=== PATIENT | female | born 1955 | race Caucasian/White ===

== ENCOUNTER 2018-01-25 07:20 | Emergency (ER) | payer MEDICARE, BC ==
[~2018-01-25] VITALS: Ht 5451.6 cm; Wt 77.3 kg
[~2018-01-25 07:20] MED LIST: AMLO10TA PO; BUPR150T8 PO; ERGO500014 PO; INSU100V13 SQ; LANTUS SQ; LEVO125T PO; LEVO1CAP PO; PANT-47 PO; QUET50TA15 PO; RAMI5CAP PO; TRAZ-146 PO; [UNRECOGNIZED DRUG - CODE] PO
[2018-01-25 07:47] LABS: BASOPHILS # (AUTO) 0.1 X10'3 (0-0.2); BASOPHILS % (AUTO) 0.5 % (0-1); EOSINOPHILS # (AUTO) 0.3 X10'3 (0-0.9); EOSINOPHILS % (AUTO) 3.4 % (0-6); HEMATOCRIT 35.4 % (35.0-45.0); HEMOGLOBIN 11.6 g/dl (12.0-16.0); LYMPHOCYTES # (AUTO) 1.2 X10'3 (1.1-4.8); LYMPHOCYTES % (AUTO) 12.5 % (21-51); MEAN CORPUSCULAR HEMOGLOBIN 28.8 PG (27.0-31.0); MEAN CORPUSCULAR HGB CONC 32.9 % (33.0-36.5); MEAN CORPUSCULAR VOLUME 87.5 FL (78-98); MEAN PLATELET VOLUME 8.6 FL (7.4-10.4); MONOCYTES # (AUTO) 0.5 X10'3 (0-0.9); MONOCYTES % (AUTO) 5.2 % (2-12); NEUTROPHILS # (AUTO) 7.7 X10'3 (1.8-7.7); NEUTROPHILS % (AUTO) 78.4 % (42-75); PLATELET COUNT 249 X10'3 (140-440); RED BLOOD COUNT 4.04 X10'6 (4.20-5.60); RED CELL DISTRIBUTION WIDTH 15.7 % (11.5-14.5); WHITE BLOOD COUNT 9.8 X10'3 (4.5-11.0)
[2018-01-25 08:00] LABS: ALANINE AMINOTRANSFERASE 81 U/L (12-78); ALBUMIN 3.1 G/DL (3.4-5.0); ALBUMIN/GLOBULIN RATIO 0.8 (1.1-1.5); ALKALINE PHOSPHATASE 131 IU/L (46-116); ANION GAP 10 (8-16); ASPARTATE AMINO TRANSFERASE 168 U/L (10-37); BILIRUBIN,TOTAL 0.3 MG/DL (0.1-1.0); BLOOD UREA NITROGEN 29 MG/DL (7-18); BUN/CREATININE RATIO 25.2 (6.6-38.0); CALCIUM 8.9 MG/DL (8.5-10.1); CHLORIDE 107 MMOL/L (99-107); CREATININE 1.15 MG/DL (0.40-0.90); GLUCOSE 115 MG/DL (70-104); POTASSIUM 4.4 MMOL/L (3.5-5.1); SODIUM 141 MMOL/L (135-145); TOTAL CARBON DIOXIDE 23.8 MMOL/L (24-32); TOTAL PROTEIN 6.9 G/DL (6.4-8.2); eGFR 48 ML/MIN
[2018-01-25 08:02] LABS: URINE HCG NEGATIVE (NEG)
[2018-01-25] MEDS ORDERED: MORPHINE 2MG in 2ml NS syringe IV PRN (08:05)
[2018-01-25] MEDS ORDERED: famotidine/PF 10 mg/ml inj IV ONE (08:05)
[2018-01-25] MEDS ORDERED: pantoprazole 40 MG vial IV ONE (08:05)
[2018-01-25] MEDS ORDERED: proCHLORperazine 10 MG/2 ml inj IV ONE (08:05)
[2018-01-25] MEDS ORDERED: morphine 4 MG/ML inj SYRINge IV PRN (08:08)
[2018-01-25 08:13] LABS: CLARITY,URINE SLIGHTLY CLOUDY (Clear); COLOR,URINE YELLOW (Yellow); GLUCOSE, URINE NEGATIVE (Neg); KETONES,URINE NEGATIVE (Neg); LEUKOCYTE ESTERASE ,URINE NEGATIVE (Neg); NITRITES, URINE NEGATIVE (Neg); OCCULT BLOOD,URINE NEGATIVE (Neg); PH,URINE 5.5 (4.8-8.0); PROTEIN,URINE 30 mg/dl (Neg); UROBILINOGEN,URINE 0.2 E.U/dL (0.2-1.0)
[2018-01-25 08:14] LABS: UA COLLECTION TYPE CLN CATCH MIDSTREAM
[2018-01-25 08:22] LABS: BACTERIA,URINE FEW /HPF (Neg); RBC,URINE NONE SEEN /HPF (0-2); SQUAMOUS EPITHELIAL CELL,UR FEW /LPF (FEW); WBC,URINE 0-4 /HPF (0-4)
[2018-01-25 08:23] LABS: MUCUS STRANDS NONE SEEN /LPF (Neg)
[2018-01-25 09:00] LABS: LIPASE 378 U/L (73-393)
[2018-01-25] MEDS: diatr meglu/diatrizoate 30ml oral sol.-(3 dose) bottle PO SCH ×3 (09:39→10:26)
[2018-01-25 10:28] VITALS: BP 133/75
== END 2018-01-25 12:45 | disposition home or self-care (01) ==
LOC: ER 07:21
DX: R10.11 Right upper quadrant pain (principal); K44.9 Diaphragmatic hernia without obstruction or gangrene; K59.00 Constipation, unspecified; N28.9 Disorder of kidney and ureter, unspecified; D35.02 Benign neoplasm of left adrenal gland; D35.01 Benign neoplasm of right adrenal gland; G89.29 Other chronic pain; Z98.890 Other specified postprocedural states; Z88.0 Allergy status to penicillin; Z79.899 Other long term (current) drug therapy; Z90.710 Acquired absence of both cervix and uterus; Z98.84 Bariatric surgery status; Z90.5 Acquired absence of kidney; Z88.1 Allergy status to other antibiotic agents
CPT/HCPCS: 36415; 74176; 80053; 81001; 81025; 83690; 85025; 96374; 96375; 99285; C9113; J0780; J3490; Q9963

== ENCOUNTER 2019-01-05 11:35 | Inpatient (IN) | payer MEDICARE, BC ==
[2019-01-05] VITALS (11 sets, daily range): BP systolic 127–168; BP diastolic 56–95
[~2019-01-05] VITALS: Ht 162.6 cm; Wt 94.1 kg
[~2019-01-05 11:35] MED LIST changes: +DIVA250T34 PO; -RAMI5CAP PO; +RAMI5CAP65 PO; -TRAZ-146 PO; +TRAZ-219 PO; -[UNRECOGNIZED DRUG - CODE] PO
[2019-01-05 12:24] LABS: BASOPHILS # (AUTO) 0.1 X10'3 (0-0.2); BASOPHILS % (AUTO) 0.9 % (0-1); EOSINOPHILS # (AUTO) 0.2 X10'3 (0-0.9); EOSINOPHILS % (AUTO) 1.8 % (0-6); HEMATOCRIT 42.9 % (35.0-45.0); HEMOGLOBIN 13.7 g/dl (12.0-16.0); LYMPHOCYTES # (AUTO) 1.7 X10'3 (1.1-4.8); LYMPHOCYTES % (AUTO) 13.7 % (21-51); MEAN CORPUSCULAR HEMOGLOBIN 27.3 PG (27.0-31.0); MEAN CORPUSCULAR HGB CONC 31.8 g/dL (33.0-36.5); MEAN CORPUSCULAR VOLUME 85.7 FL (78-98); MEAN PLATELET VOLUME 8.9 FL (7.4-10.4); MONOCYTES # (AUTO) 0.6 X10'3 (0-0.9); NEUTROPHILS # (AUTO) 9.9 X10'3 (1.8-7.7); NEUTROPHILS % (AUTO) 78.6 % (42-75); PLATELET COUNT 267 X10'3 (140-440); RED BLOOD COUNT 5.01 X10'6 (4.20-5.60); RED CELL DISTRIBUTION WIDTH 15.3 % (11.5-14.5); WHITE BLOOD COUNT 12.6 X10'3 (4.5-11.0)
[2019-01-05] MEDS ORDERED: normal saline 1000ML IV soln IVB ONE (12:30)
[2019-01-05 12:32] LABS: ALANINE AMINOTRANSFERASE 18 U/L (12-78); ALBUMIN 3.4 G/DL (3.4-5.0); ALBUMIN/GLOBULIN RATIO 0.7 (1.1-1.5); ALKALINE PHOSPHATASE 115 IU/L (46-116); ANION GAP 11 (8-16); ASPARTATE AMINO TRANSFERASE 13 U/L (10-37); BILIRUBIN,TOTAL 0.6 MG/DL (0.1-1.0); BLOOD UREA NITROGEN 30 MG/DL (7-18); BUN/CREATININE RATIO 17.5 (6.6-38.0); CALCIUM 9.5 MG/DL (8.5-10.1); CHLORIDE 103 MMOL/L (99-107); CREATININE 1.71 MG/DL (0.40-0.90); GLUCOSE 194 MG/DL (70-104); INR 0.9 INR; POTASSIUM 4.6 MMOL/L (3.5-5.1); SODIUM 137 MMOL/L (135-145); TOTAL PROTEIN 8.2 G/DL (6.4-8.2); eGFR 30 ML/MIN
[2019-01-05 12:40] LABS: LIPASE 208 U/L (73-393)
[2019-01-05] MEDS ORDERED: metroNIDAZOLE-Flagyl 500mg/NS 100 ML IV ONE (13:35)
[2019-01-05] MEDS ORDERED: levoFLOXACIN-Levaquin 750MG/D5 150 ML IV ONE (13:35)
[2019-01-05] MEDS ORDERED: fentaNYL/PF 50MCG/1 ML 2ML syringe IV ONE ×2 (14:40→18:10)
[2019-01-05 14:51] LABS: CLARITY,URINE SLIGHTLY CLOUDY (Clear); GLUCOSE, URINE NEGATIVE (Neg); KETONES,URINE NEGATIVE (Neg); LEUKOCYTE ESTERASE ,URINE TRACE (Neg); NITRITES, URINE POSITIVE (Neg); OCCULT BLOOD,URINE NEGATIVE (Neg); PH,URINE 5.5 (4.8-8.0); PROTEIN,URINE 100 mg/dl (Neg); UROBILINOGEN,URINE 0.2 E.U/dL (0.2-1.0)
[2019-01-05 14:57] LABS: COLOR,URINE DARK YELLOW (Yellow); UA COLLECTION TYPE CLN CATCH MIDSTREAM
[2019-01-05] MEDS ORDERED: BUPR300T86 PO (15:00)
[2019-01-05] MEDS ORDERED: PROG200C7 PO (15:00)
[2019-01-05 15:01] LABS: BACTERIA,URINE 4+ /HPF (Neg); RBC,URINE NONE SEEN /HPF (0-2); SQUAMOUS EPITHELIAL CELL,UR MANY /LPF (FEW); WBC CLUMPS,URINE FEW /HPF (NEGATIVE)
[2019-01-05] MEDS ORDERED: [UNRECOGNIZED DRUG - OTHER] PO (15:03)
[2019-01-05] MEDS ORDERED: [UNRECOGNIZED DRUG - OTHER] PO (15:03)
[2019-01-05] MEDS ORDERED: THYROID PO (15:12)
[2019-01-05] MEDS ORDERED: [UNRECOGNIZED DRUG - OTHER] PO (15:12)
[2019-01-05] MEDS ORDERED: GLEC1TAB PO (15:21)
[2019-01-05] MEDS: normal saline 1000ml 1,000 ML IV SCH ×2 (15:38→18:43)
[2019-01-05] MEDS ORDERED: docusate sod 100mg capsule PO PRN (15:40)
[2019-01-05] MEDS ORDERED: magnesium 4gm in 100ml NS 100 ML IV PRN (15:40)
[2019-01-05] MEDS ORDERED: magnesium 2GM in 50ml NS 50 ML IV PRN (15:40)
[2019-01-05] MEDS ORDERED: magnesium Cl slow-release 64mg tablet PO PRN (15:40)
[2019-01-05] MEDS ORDERED: potassium Cl 40MEQ/NS 500ml 500 ML IV PRN ×2 (15:40)
[2019-01-05] MEDS ORDERED: acetaminophen 325mg tablet PO PRN ×2 (15:40)
[2019-01-05] MEDS ORDERED: dextrose 50%-water 50ml dispensing syringe IV PRN ×2 (15:40)
[2019-01-05] MEDS ORDERED: ondansetron/PF 4mg/2ml inj IV PRN ×2 (15:40→20:15)
[2019-01-05] MEDS ORDERED: HYDROcodone/acetaminophen 5mg/325mg tablet PO PRN ×2 (15:40→20:40)
[2019-01-05] MEDS ORDERED: glucagon, human recombinant 1mg kit SUBCUT PRN (15:40)
[2019-01-05] MEDS ORDERED: dextrose ORAL solution 15 GM/59 ML bottle PO PRN ×2 (15:40)
[2019-01-05] MEDS ORDERED: potassium Cl 20 mEq SR tablet PO PRN ×2 (15:40)
[2019-01-05] MEDS ORDERED: morphine 4 MG/ML inj SYRINge IV PRN ×3 (15:40→20:15)
[2019-01-05] MEDS ORDERED: MESSAGE TO PHARMACY PO ONE (15:40)
--- NOTE | 2019-01-05 18:30 | NUR ---
PT BLOOD GLUCOSE PER PT MONITOR - 90
[2019-01-05] MEDS ORDERED: BUPIVAcaine/PF 2.5mg/ml (0.25%) 10ml vial ONE (19:16)
[2019-01-05] MEDS ORDERED: LIDOcaine 1% 30ml preserv. free vial ONE (19:16)
[2019-01-05] MEDS ORDERED: midazolam 2 mg/2 ml injection ONE (19:37)
[2019-01-05] MEDS ORDERED: fentaNYL/PF 50MCG/1 ML 2ML syringe ONE (19:37)
[2019-01-05] MEDS ORDERED: sevoflurane 250ml liquid IH ONE (19:41)
[2019-01-05] MEDS ORDERED: cefotetan 2gm/isosm dext IVPB 50 ML IV ONE (19:54)
[2019-01-05] MEDS ORDERED: ringers solution, lacted 1,000 ML IV SCH (20:15)
[2019-01-05] MEDS ORDERED: meperidine/PF 25mg/ml syringe IV PRN ×2 (20:15)
[2019-01-05] MEDS ORDERED: proCHLORperazine 10 MG/2 ml inj IV PRN (20:15)
[2019-01-05] MEDS ORDERED: ondansetron/PF 4mg/2ml inj ONE (20:25)
[2019-01-05] MEDS ORDERED: LIDOcaine 2% (20mg/ml) 5ml vial ONE (20:25)
[2019-01-05] MEDS ORDERED: neostigmine methylsulfate 1 MG/ML 10ml vial ONE (20:25)
[2019-01-05] MEDS ORDERED: rocuronium 10mg/ml inj IV ONE (20:25)
[2019-01-05] MEDS ORDERED: glycopyrrolate 0.2mg/ml inj ONE (20:25)
[2019-01-05] MEDS ORDERED: propofol inj 20 ML IV ONE (20:25)
[2019-01-05] MEDS ORDERED: meperidine/PF 25mg/ml syringe ONE (20:54)
[2019-01-05] MEDS: meperidine/PF 25mg/ml syringe IV PRN ×3 (21:00→21:24)
[2019-01-05] MEDS ORDERED: QUEtiapine 25mg tablet PO SCH (21:00)
[2019-01-05] MEDS ORDERED: QUETIAPINE 50 MG TAB.SR.24H PO SCH (21:00)
[2019-01-05] MEDS ORDERED: insulin glargine (Lantus) pen - multi-dose SQ SCH (21:00)
--- NOTE | 2019-01-05 21:25 | NUR ---
Report called to receiving nurse. Transferred via [facility] . Special Issues communicated to receiving nursE LEXIS MENSAH. PT HAS MET DISCHARGE CRITERIA,, AWAKE, ALERT, ORIENTED, BA'S ON ABD CD, PIV PATENT, VSS, SCD'S ADITYA WATER, TELE PLACED ON PT.
[2019-01-05] MEDS: heparin, porcine 5000 units/ml vial SQ SCH (21:59)
[2019-01-05] MEDS: HYDROcodone/acetaminophen 10/325mg tab PO PRN (22:07)
[2019-01-05] MEDS ORDERED: QUEtiapine 25mg tablet PO ONE (23:20)
[2019-01-05] MEDS: temazepam 15mg capsule PO PRN (23:22)
--- NOTE | 2019-01-05 23:31 | NUR ---
Received from OR via , accompanied by Anesthesiologist DR WEISS and report given by Anesthesiolgist. PT IS AWAKE, ALERT, MOVES EXT X 4, SKIN WARM AND PINK, ABD HAS 3 BA'S CD, PIV RIGHT HAND 20G WITH NS 100ML/HR, SCD'S, MEDICATED PT FOR PAIN, VSS. Addendum: 01/05/19 at 2341 by Bethanie Washington RN ABOVE NOTE WAS INCORRECTLY TIMED. ACTUAL ENTRY TIME SHOULD STATE 2044
[2019-01-06] VITALS: BP_SYST 130; BP_SYST 149; BP_DIAS 60; BP_DIAS 69
[2019-01-06 01:00] VITALS: BP 128/64
[2019-01-06] MEDS: temazepam 15mg capsule PO PRN (01:54)
[2019-01-06] MEDS: metroNIDAZOLE-Flagyl 500mg/NS 100 ML IV SCH ×2 (01:54→13:13)
[2019-01-06] MEDS: HYDROcodone/acetaminophen 10/325mg tab PO PRN ×2 (01:58→06:57)
[2019-01-06 02:00] VITALS: BP 142/76
[2019-01-06 03:55] VITALS: BP 104/51
[2019-01-06] MEDS: normal saline 1000ml 1,000 ML IV SCH (05:10)
--- NOTE | 2019-01-06 06:20 | NUR ---
Patient in room LUC 360. I have received report from RODRICK Ospina and had the opportunity to ask questions and assume patient care.
--- NOTE | 2019-01-06 06:22 | NUR ---
Problems reprioritized. Patient report given, questions answered & plan of care reviewed with Guillermo RN.
[2019-01-06 08:00] VITALS: BP_SYST 117
[2019-01-06] MEDS ORDERED: [UNRECOGNIZED DRUG - OTHER] PO SCH (08:00)
[2019-01-06] MEDS ORDERED: K and/or MAG REPLACEMENT MC SCH (08:00)
[2019-01-06] MEDS ORDERED: pantoprazole 40mg Tablet.DR PO SCH (08:00)
[2019-01-06] MEDS ORDERED: heparin, porcine 5000 units/ml vial SQ SCH (08:00)
[2019-01-06] MEDS ORDERED: buPROPion 75mg tablet PO SCH (08:00)
[2019-01-06] MEDS: heparin, porcine 5000 units/ml vial SQ SCH (08:19)
[2019-01-06] MEDS: insulin Lispro (HumaLOG) vial - multi-dose SQ SCH ×2 (09:29→13:21)
[2019-01-06 11:44] LABS: BASOPHILS # (AUTO) 0.1 X10'3 (0-0.2); BASOPHILS % (AUTO) 0.7 % (0-1); EOSINOPHILS # (AUTO) 0.1 X10'3 (0-0.9); EOSINOPHILS % (AUTO) 1.5 % (0-6); HEMATOCRIT 34.4 % (35.0-45.0); HEMOGLOBIN 10.9 g/dl (12.0-16.0); LYMPHOCYTES # (AUTO) 1.4 X10'3 (1.1-4.8); LYMPHOCYTES % (AUTO) 16.7 % (21-51); MEAN CORPUSCULAR HEMOGLOBIN 27.5 PG (27.0-31.0); MEAN CORPUSCULAR HGB CONC 31.6 g/dL (33.0-36.5); MEAN CORPUSCULAR VOLUME 86.9 FL (78-98); MONOCYTES # (AUTO) 0.5 X10'3 (0-0.9); NEUTROPHILS # (AUTO) 6.3 X10'3 (1.8-7.7); NEUTROPHILS % (AUTO) 75.1 % (42-75); PLATELET COUNT 188 X10'3 (140-440); RED BLOOD COUNT 3.95 X10'6 (4.20-5.60); RED CELL DISTRIBUTION WIDTH 15.4 % (11.5-14.5); WHITE BLOOD COUNT 8.4 X10'3 (4.5-11.0)
[2019-01-06 11:54] LABS: ALANINE AMINOTRANSFERASE 17 U/L (12-78); ALBUMIN 2.5 G/DL (3.4-5.0); ALBUMIN/GLOBULIN RATIO 0.7 (1.1-1.5); ALKALINE PHOSPHATASE 87 IU/L (46-116); ANION GAP 10 (8-16); ASPARTATE AMINO TRANSFERASE 13 U/L (10-37); BILIRUBIN,TOTAL 0.4 MG/DL (0.1-1.0); BLOOD UREA NITROGEN 34 MG/DL (7-18); BUN/CREATININE RATIO 18.5 (6.6-38.0); CALCIUM 8.4 MG/DL (8.5-10.1); CHLORIDE 104 MMOL/L (99-107); CREATININE 1.84 MG/DL (0.40-0.90); GLUCOSE 331 MG/DL (70-104); MAGNESIUM 1.7 MG/DL (1.5-2.4); POTASSIUM 4.5 MMOL/L (3.5-5.1); SODIUM 135 MMOL/L (135-145); TOTAL CARBON DIOXIDE 21.2 MMOL/L (24-32); TOTAL PROTEIN 6.3 G/DL (6.4-8.2); eGFR 28 ML/MIN
[2019-01-06 12:00] VITALS: BP 149/73
[2019-01-06] MEDS ORDERED: levoFLOXACIN-Levaquin 500mg/D5 100 ML IV SCH (15:00)
[2019-01-06] MEDS ORDERED: LEVO500T89 PO (17:21)
== END 2019-01-06 15:29 | disposition home or self-care (01) | DRG 854 ==
LOC: ER 11:36 → ED HOLD 15:38 → SUR 3N 20:30
PROVIDERS: ADMIT Internal Medicine; ATTEND Family Medicine
PROC: 0DTJ4ZZ Resection of Appendix, Percutaneous Endoscopic Approach (ICD-10-PCS; principal; 2019-01-05 19:41)
DX: A41.9 Sepsis, unspecified organism (principal); K35.80 Unspecified acute appendicitis; N39.0 Urinary tract infection, site not specified; B19.20 Unspecified viral hepatitis C without hepatic coma; E11.22 Type 2 diabetes mellitus with diabetic chronic kidney disease; K59.00 Constipation, unspecified; N18.3 Chronic kidney disease, stage 3 (moderate); G89.29 Other chronic pain; M54.9 Dorsalgia, unspecified; Z96.41 Presence of insulin pump (external) (internal); Z98.84 Bariatric surgery status; Z90.5 Acquired absence of kidney; Z90.710 Acquired absence of both cervix and uterus; Z98.51 Tubal ligation status; Z88.0 Allergy status to penicillin; Z88.1 Allergy status to other antibiotic agents; Z79.4 Long term (current) use of insulin; Z85.528 Personal history of other malignant neoplasm of kidney
CPT/HCPCS: 36415; 74176; 80053; 81001; 82948; 83036; 83605; 83690; 83735; 85025; 85610; 87040; 87070; 88300; 93005; 96361; 96365; 96368; 96375; 99285; A4315; A7000; G0378; J1644; J1815; J1956; J2001; J2175; J2250; J2270; J2405; J2704; J2710; J3010; J3490; J7030; J7120

== ENCOUNTER 2021-04-15 08:49 | Day surgery (SDC) | payer MEDICARE, BC ==
[~2021-04-15] VITALS: Ht 162.6 cm; Wt 85.7 kg
[2021-04-15] VITALS (11 sets, daily range): BP systolic 126–152; BP diastolic 70–86
[~2021-04-15 08:49] MED LIST changes: -AMLO10TA PO; -BUPR150T8 PO; +BUPR300T86 PO; -DIVA250T34 PO; -ERGO500014 PO; +GLEC1TAB PO; -LANTUS SQ; -LEVO125T PO; -LEVO1CAP PO; +PROG200C11 PO; -RAMI5CAP65 PO; +THYROID PO; -TRAZ-219 PO; +[UNRECOGNIZED DRUG - OTHER] PO
[2021-04-15] MEDS ORDERED: CARI4.5C PO (09:13)
[2021-04-15] MEDS ORDERED: TOPI25TA15 PO (09:13)
[2021-04-15] MEDS ORDERED: LOP12.5T PO (09:14)
[2021-04-15] MEDS ORDERED: VITA-268 PO (09:16)
[2021-04-15] MEDS ORDERED: CHOL400T57 PO (09:16)
[2021-04-15] MEDS ORDERED: ROSU5TAB PO (09:16)
[2021-04-15] MEDS ORDERED: ASCO-162 PO (09:16)
[2021-04-15] MEDS ORDERED: normal saline 1000ml 1,000 ML IV PRN (09:20)
[2021-04-15] MEDS ORDERED: fentaNYL/PF 50MCG/1 ML 2ML syringe ONE (11:06)
[2021-04-15] MEDS ORDERED: midazolam 1 mg/ML 2ml injection ONE (11:06)
[2021-04-15] MEDS ORDERED: LIDOcaine 1%/PF 5ML 10 MG/ML VIAL ONE (11:25)
== END 2021-04-15 12:40 | disposition home or self-care (01) ==
LOC: SSTAY O 08:49
PROVIDERS: ATTEND Radiology Vascular & Interventional Radiology
DX: E04.1 Nontoxic single thyroid nodule (principal); E03.9 Hypothyroidism, unspecified; E06.3 Autoimmune thyroiditis; G89.29 Other chronic pain; F32.9 Major depressive disorder, single episode, unspecified; E11.22 Type 2 diabetes mellitus with diabetic chronic kidney disease; N18.30 Chronic kidney disease, stage 3 unspecified; G47.30 Sleep apnea, unspecified; E78.00 Pure hypercholesterolemia, unspecified; Z79.891 Long term (current) use of opiate analgesic; Z79.4 Long term (current) use of insulin; Z79.899 Other long term (current) drug therapy; Z86.19 Personal history of other infectious and parasitic diseases; Z88.0 Allergy status to penicillin; Z88.1 Allergy status to other antibiotic agents; Z87.891 Personal history of nicotine dependence
CPT/HCPCS: 10005; 99152; 99153; J2250; J3010

== ENCOUNTER 2021-07-15 10:04 | Day surgery (SDC) | payer MEDICARE, BC ==
[2021-07-09 15:19] LABS: BASOPHILS # (AUTO) 0.1 X10'3 (0-0.2); BASOPHILS % (AUTO) 0.8 % (0-1); EOSINOPHILS # (AUTO) 0.2 X10'3 (0-0.9); EOSINOPHILS % (AUTO) 2.9 % (0-6); LYMPHOCYTES % (AUTO) 23.2 % (21-51); MEAN CORPUSCULAR HEMOGLOBIN 31.4 PG (27.0-31.0); MEAN CORPUSCULAR HGB CONC 33.1 g/dL (33.0-36.5); MEAN CORPUSCULAR VOLUME 94.9 FL (78-98); MEAN PLATELET VOLUME 9.3 FL (7.4-10.4); MONOCYTES # (AUTO) 0.5 X10'3 (0-0.9); MONOCYTES % (AUTO) 5.9 % (2-12); NEUTROPHILS # (AUTO) 5.8 X10'3 (1.8-7.7); NEUTROPHILS % (AUTO) 67.2 % (42-75); PRE OP HEMATOCRIT 40.1 % (35.0-45.0); PRE OP HEMOGLOBIN 13.3 g/dL (12.0-16.0); PRE OP PLATELET COUNT 197 X10'3 (140-440); RED BLOOD COUNT 4.22 X10'6 (4.20-5.60); RED CELL DISTRIBUTION WIDTH 14.3 % (11.5-14.5)
[2021-07-09 15:22] LABS: ALBUMIN 3.4 G/DL (3.4-5.0); ALBUMIN/GLOBULIN RATIO 0.9 (1.1-1.5); ALKALINE PHOSPHATASE 113 IU/L (46-116); BLOOD UREA NITROGEN 33 MG/DL (7-18); BUN/CREATININE RATIO 22.9 (6.6-38.0); CHLORIDE 112 MMOL/L (99-107); CREATININE 1.44 MG/DL (0.40-0.90); PRE OP ALT 24 U/L (30-65); PRE OP ANION GAP 13 (8-16); PRE OP AST 12 U/L (10-37); PRE OP BILIRUB, TOTAL 0.3 MG/DL (0.0-1.0); PRE OP GLUCOSE 98 MG/DL (70-104); PRE OP POTASSIUM 3.9 MMOL/L (3.4-5.1); PRE OP SODIUM 147 MMOL/L (135-145); TOTAL CARBON DIOXIDE 22.2 MMOL/L (24-32); TOTAL PROTEIN 7.1 G/DL (6.4-8.2); eGFR 37 ML/MIN
[2021-07-15] VITALS (8 sets, daily range): BP systolic 142–177; BP diastolic 77–89
[~2021-07-15] VITALS: Ht 162.6 cm; Wt 88.0 kg
[~2021-07-15 10:04] MED LIST changes: +ASCO-162 PO; +CARI4.5C PO; +CLINDAMYCIN/D5W 900mg/50ml 50 ML IV ONE; +COQ PO; -GLEC1TAB PO; +INDOCYANINE GREEN 25 MG/10 ML VIAL IV ONE; +LOP12.5T PO; +NIACIN PO; +PROG100C16 PO; -PROG200C11 PO; +TOPI25TA15 PO; +VITA-321 PO; +[UNRECOGNIZED DRUG - OTHER] PO; +[UNRECOGNIZED DRUG - OTHER] PO; +famotidine 20mg tablet PO ONE; +ringers solution, lacted 1,000 ML IV SCH
[2021-07-15] MEDS ORDERED: meperidine/PF 25mg/ml syringe IV PRN ×2 (12:05)
[2021-07-15] MEDS ORDERED: ringers solution, lacted 1,000 ML IV SCH (12:05)
[2021-07-15] MEDS ORDERED: proCHLORperazine 10 MG/2 ml inj IV PRN (12:05)
[2021-07-15] MEDS ORDERED: morphine 4 MG/ML inj SYRINge IV PRN (12:05)
[2021-07-15] MEDS ORDERED: morphine 2 MG/ML inj. syringe IV PRN (12:05)
[2021-07-15] MEDS ORDERED: ondansetron/PF 4mg/2ml inj IV PRN (12:05)
[2021-07-15] MEDS ORDERED: BUPIVAcaine/PF 2.5mg/ml (0.25%) 10ml vial ONE (12:16)
[2021-07-15] MEDS ORDERED: LIDOcaine 1% 30ml preserv. free vial ONE (12:16)
[2021-07-15] MEDS ORDERED: fentaNYL/PF 50MCG/1 ML 2ML syringe ONE (12:55)
[2021-07-15] MEDS ORDERED: midazolam 1 mg/ML 2ml injection ONE (12:56)
[2021-07-15] MEDS ORDERED: sevoflurane 250ml liquid IH ONE (12:57)
[2021-07-15] MEDS ORDERED: glycopyrrolate 0.2mg/ml inj ONE (13:58)
[2021-07-15] MEDS ORDERED: neostigmine methylsulfate 1 MG/ML 10ml vial ONE (13:58)
[2021-07-15] MEDS ORDERED: LIDOcaine 2% (20mg/ml) 5ml vial ONE (13:58)
[2021-07-15] MEDS ORDERED: rocuronium 10mg/ml inj IV ONE (13:58)
[2021-07-15] MEDS ORDERED: propofol inj 20 ML IV ONE (13:58)
[2021-07-15] MEDS ORDERED: ondansetron/PF 4mg/2ml inj ONE (13:58)
[2021-07-15] MEDS ORDERED: insulin regular, human U-100 3ml vial - multi-dose ONE (14:03)
[2021-07-15] MEDS ORDERED: meperidine/PF 25mg/ml syringe ONE (14:29)
--- NOTE | 2021-07-15 14:39 | NUR ---
Received from OR via , accompanied by Anesthesiologist DR WEISS and report given by Anesthesiolgist. AWAKRNS TO VOICE. VITALS STABLE. DRESSINGS DI. STATES PAIN TO ABD . ABD SOFT.
[2021-07-15] MEDS ORDERED: HYDROcodone/acetaminophen 5mg/325mg tablet PO PRN (14:40)
[2021-07-15] MEDS: meperidine/PF 25mg/ml syringe IV PRN ×2 (14:52→15:05)
[2021-07-15] MEDS ORDERED: acetaminophen 1,000mg/100ml IV 100 ML IV ONE (15:05)
--- NOTE | 2021-07-15 15:47 | NUR ---
AWAKE AND ORIENTED. VITALS STABLE. DRESSINGS DI. STATES PAIN IMPROIVING. HOME WITH HER SPOUSE AT THIS TIME.
== END 2021-07-15 15:47 | disposition home or self-care (01) ==
LOC: PAS 10:04
PROVIDERS: ATTEND Surgery
DX: K80.10 Calculus of gallbladder with chronic cholecystitis without obstruction (principal); I10 Essential (primary) hypertension; F31.9 Bipolar disorder, unspecified; G89.29 Other chronic pain; E11.9 Type 2 diabetes mellitus without complications; Z90.5 Acquired absence of kidney; Z98.890 Other specified postprocedural states; Z98.84 Bariatric surgery status; Z87.891 Personal history of nicotine dependence; Z88.1 Allergy status to other antibiotic agents; Z79.899 Other long term (current) drug therapy
CPT/HCPCS: 36415; 47563; 80053; 82948; 85025; 93005; J0131; J2001; J2175; J2250; J2405; J2704; J2710; J3010; J3490; J7120; U0003; U0005; Z7506; Z7508; Z7512; 88304; A4215; A4618; A7000; J1815

== ENCOUNTER 2023-07-16 12:16 | Emergency (ER) | payer MEDICARE, BC ==
[~2023-07-16] VITALS: Ht 162.6 cm; Wt 82.2 kg
[~2023-07-16 12:16] MED LIST changes: -CLINDAMYCIN/D5W 900mg/50ml 50 ML IV ONE; -INDOCYANINE GREEN 25 MG/10 ML VIAL IV ONE; -PROG100C16 PO; +PROG100C37 PO; -famotidine 20mg tablet PO ONE; -ringers solution, lacted 1,000 ML IV SCH
--- NOTE | 2023-07-16 12:39 | NUR ---
PT PRESENTS TO THE ER FOR "3 OR 4 ATTACKS, I DONT KNOW WHAT A SEIZURE FELT LIKE BUT I THINK IT WAS ONE" PT STATES SHE FELT LIKE ELECTRICITY WAS GOING THROUGH HER.
[2023-07-16 13:46] VITALS: BP 138/73; PULSE 68; RESP 18; TEMP 98.3; O2SAT 96
--- NOTE | 2023-07-16 13:56 | NUR ---
I agree with the assessment per Shannon Hawley LVN
== END 2023-07-16 13:48 | disposition home or self-care (01) ==
LOC: ER 12:17
DX: T75.4XXA Electrocution, initial encounter (principal); G89.29 Other chronic pain; M54.9 Dorsalgia, unspecified; E11.9 Type 2 diabetes mellitus without complications; Z88.0 Allergy status to penicillin; Z88.1 Allergy status to other antibiotic agents
CPT/HCPCS: 99281

== ENCOUNTER 2025-03-19 05:27 | Day surgery (SDC) | payer MEDICARE, BC ==
[2025-03-14 13:47] LABS: BASOPHILS % (AUTO) 0.5 % (0-1); EOSINOPHILS # (AUTO) 0.2 X10'3 (0-0.9); EOSINOPHILS % (AUTO) 2.4 % (0-6); LYMPHOCYTES # (AUTO) 1.7 X10'3 (1.1-4.8); LYMPHOCYTES % (AUTO) 19.6 % (21-51); MEAN CORPUSCULAR HEMOGLOBIN 29.2 PG (27.0-31.0); MEAN CORPUSCULAR HGB CONC 32.5 g/dL (33.0-36.5); MEAN CORPUSCULAR VOLUME 89.8 FL (78-98); MEAN PLATELET VOLUME 9.1 FL (7.4-10.4); MONOCYTES # (AUTO) 0.5 X10'3 (0-0.9); MONOCYTES % (AUTO) 6.2 % (2-12); NEUTROPHILS # (AUTO) 6.1 X10'3 (1.8-7.7); NEUTROPHILS % (AUTO) 71.3 % (42-75); PRE OP HEMATOCRIT 39.3 % (35.0-45.0); PRE OP HEMOGLOBIN 12.8 g/dL (12.0-16.0); PRE OP PLATELET COUNT 212 X10'3 (140-440); PRE OP WHITE BLOOD COUNT 8.5 10'3 (4.8-10.8); RED BLOOD COUNT 4.38 X10'6 (4.20-5.60); RED CELL DISTRIBUTION WIDTH 15.2 % (11.5-14.5)
[2025-03-14 14:33] LABS: ALBUMIN 3.4 G/DL (3.4-5.0); ALBUMIN/GLOBULIN RATIO 1.1 (1.1-1.5); ALKALINE PHOSPHATASE 114 IU/L (46-116); BLOOD UREA NITROGEN 24 MG/DL (7-18); BUN/CREATININE RATIO 19.4 (10.0-20.0); CALCIUM 8.5 MG/DL (8.5-10.1); CHLORIDE 114 MMOL/L (99-107); CREATININE 1.24 MG/DL (0.40-0.90); PRE OP ALT 22 U/L (30-65); PRE OP ANION GAP 10 (8-16); PRE OP AST 12 U/L (10-37); PRE OP BILIRUB, TOTAL 0.3 MG/DL (0.0-1.0); PRE OP GLUCOSE 177 MG/DL (70-104); PRE OP POTASSIUM 4.1 MMOL/L (3.4-5.1); PRE OP SODIUM 146 MMOL/L (135-145); TOTAL PROTEIN 6.6 G/DL (6.4-8.2); eGFR 43 ML/MIN
[~2025-03-19] VITALS: Ht 160 cm; Wt 82.6 kg
[~2025-03-19 05:27] MED LIST changes: +ACET-2 PO; -ASCO-162 PO; +BUPR-480 PO; -BUPR300T86 PO; -CARI4.5C PO; -COQ PO; +EVOL140S2 SQ; -INSU100V13 SQ; +METO50TA16 PO; -NIACIN PO; +NOVOLOG INSULIN PUMP SQ; -PANT-47 PO; -PROG100C37 PO; +QUET100T34 PO; -QUET50TA15 PO; +TIZA-205 PO; -VITA-321 PO; -[UNRECOGNIZED DRUG - OTHER] PO; -[UNRECOGNIZED DRUG - OTHER] PO
[2025-03-19] MEDS ORDERED: clindamycin 600mg/D5W 50ml 50 ML IV ONE (05:30)
[2025-03-19] MEDS: DOCUMENT DATE & TIME OF BETA-BLOCKER PO ONE (05:30)
[2025-03-19 06:00] VITALS: BP 127/58; PULSE 59; RESP 16; TEMP 97.1; O2SAT 98
--- NOTE | 2025-03-19 06:29 | ELECTROCARDIOGRAPH REPORT ---
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
[2025-03-19] MEDS ORDERED: LIDOcaine 2% (20mg/ml) 5ml vial ONE ×2 (06:46→07:15)
[2025-03-19] MEDS ORDERED: BUPIVAcaine/PF 2.5mg/ml (0.25%) 10ml vial ONE (06:46)
[2025-03-19] MEDS: ringers solution, lacted 1,000 ML IV SCH (06:53)
[2025-03-19] MEDS: famotidine 20mg tablet PO ONE (06:53)
[2025-03-19] MEDS ORDERED: fentaNYL/PF 50MCG/1 ML 2ML syringe IV PRN ×2 (07:10)
[2025-03-19] MEDS ORDERED: ondansetron/PF 4mg/2ml inj IV PRN (07:10)
[2025-03-19] MEDS ORDERED: morphine 4 MG/ML inj SYRINge IV PRN (07:10)
[2025-03-19] MEDS ORDERED: labetalol 20mg/4ml (5mg/ml) syringe IV PRN (07:10)
[2025-03-19] MEDS ORDERED: morphine 2 MG/ML inj. syringe IV PRN (07:10)
[2025-03-19] MEDS ORDERED: ringers solution, lacted 1,000 ML IV SCH (07:10)
[2025-03-19] MEDS ORDERED: fentaNYL/PF 50MCG/1 ML 2ML syringe ONE (07:14)
[2025-03-19] MEDS ORDERED: MIDAZolam 1 MG/ML 5ML VIAL ONE (07:14)
[2025-03-19] MEDS ORDERED: propofol inj 0 ML IV ONE (07:15)
[2025-03-19] MEDS ORDERED: propofol inj 20 ML IV ONE (07:15)
[2025-03-19] MEDS: BUPIVAcaine/PF 2.5mg/ml (0.25%) 10ml vial IJ ONE (07:55)
[2025-03-19 08:04] VITALS: BP 114/50; PULSE 70; RESP 16; O2SAT 100
[2025-03-19 08:10] VITALS: BP 129/54; PULSE 55; RESP 11; O2SAT 99
[2025-03-19 08:20] VITALS: BP 103/58; PULSE 65; RESP 18; O2SAT 97
[2025-03-19 08:30] VITALS: BP 128/53; PULSE 57; RESP 15; O2SAT 96
[2025-03-19 08:40] VITALS: BP 137/84; PULSE 67; RESP 13; O2SAT 98
--- NOTE | 2025-03-19 10:35 | OPERATIVE REPORT ---
Operative Report Providers to ~ Date of Procedure: Mar 19, 2025 Pre-Operative Diagnosis: Right middle finger trigger finger Post-Operative Diagnosis SAME as PRE-Op Procedure Performed Incision tendon sheath A1 arnol right middle finger Surgeon: Paul Greco MD Derrick Helper None Anesthesiologist: Jagdeep Erickson Type of Anesthesia: Other (Local) Findings: Estimated Blood Loss: None Specimen Removed: None Description of Procedure: The patient is a 69-year-old woman with right middle finger trigger finger refractory to nonsurgical treatment. Surgery is indicated to relieve symptoms. After consent was obtained the patient was brought to the operating room where the arm was prepped and draped in usual manner. Local anesthetic was infiltrated proximal to the finger. A tourniquet was elevated on the forearm. A longitudinal incision was made over the flexor tendon at the distal palm level. Dissection was taken down to the A1 arnol which was released. There was some thickened palmar fascia just proximal to that so the incision was extended slightly more proximal and that thickened fascia was excised as well. The incision was irrigated and closed with Prolene suture. A sterile dressing was then applied and the tourniquet was released. The hand perfused well and the patient was taken to the recovery room in stable condition PAUL GRECO Jr., MD Mar 19, 2025 10:35
== END 2025-03-19 08:44 | disposition home or self-care (01) ==
LOC: PAS 05:27
PROVIDERS: ATTEND Orthopaedic Surgery Hand Surgery
DX: M65.331 Trigger finger, right middle finger (principal); I12.9 Hypertensive chronic kidney disease with stage 1 through stage 4 chronic kidney disease, or unspecified chronic kidney disease; E11.22 Type 2 diabetes mellitus with diabetic chronic kidney disease; N18.9 Chronic kidney disease, unspecified; F31.9 Bipolar disorder, unspecified; M19.90 Unspecified osteoarthritis, unspecified site; E66.9 Obesity, unspecified; Z68.31 Body mass index [BMI] 31.0-31.9, adult; Z96.41 Presence of insulin pump (external) (internal); G47.33 Obstructive sleep apnea (adult) (pediatric); Z90.49 Acquired absence of other specified parts of digestive tract; Z98.84 Bariatric surgery status; Z98.51 Tubal ligation status; Z87.891 Personal history of nicotine dependence; Z88.0 Allergy status to penicillin; Z88.1 Allergy status to other antibiotic agents; Z98.890 Other specified postprocedural states; Z79.4 Long term (current) use of insulin; Z79.899 Other long term (current) drug therapy
CPT/HCPCS: 26055; 36415; 80053; 82948; 85025; 93005; A4215; A6449; J2003; J2250; J2704; J3010; J3490; J7030; J7120; Z7506; Z7512

== ENCOUNTER 2025-06-16 13:57 | Emergency (ER) | payer MEDICARE, BC ==
[~2025-06-16] VITALS: Ht 162.6 cm; Wt 85.0 kg
--- NOTE | 2025-06-16 14:09 | ELECTROCARDIOGRAPH REPORT ---
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 Florentino Calle Measurements Intervals [place] Rate: 83 P: 2 [place]: 196 QRS: 25 QRSD: 92 T: 29 QT: 371 QTc: 436 Interpretive Statements Sinus rhythm Long R-R with ventricular escape Electronically Signed On 06-20-2025 19:21:[address] Florentino Calle Please click the below link to view image of tracing.
[2025-06-16 14:25] LABS: MEAN PLATELET VOLUME 9.1 FL (7.4-10.4); RED CELL DISTRIBUTION WIDTH 15.1 % (11.5-14.5)
--- NOTE | 2025-06-16 14:31 | RADIOLOGY REPORT ---
EXAM: DI CHEST,SINGLE VIEW HISTORY: CP TECHNIQUE: 1 view of the chest COMPARISON: BIOPSY ANGIO (A) on DOS: 04/15/21 FINDINGS/IMPRESSION: LUNGS: No pleural effusion, consolidation, or pneumothorax. Peripheral interstitial edema. MEDIASTINUM: Unremarkable BONES: No acute osseous abnormality . Prior anterior cervical discectomy and fusion OTHER: None
[2025-06-16 14:46] LABS: CREATININE 1.93 MG/DL (0.40-0.90); PRO BRAIN NATRIURETIC PEPTIDE 215 PG/ML (0-125); TOTAL CARBON DIOXIDE 18.0 MMOL/L (24-32); eCRCL 24 ML/MIN; eGFR 26 ML/MIN
--- NOTE | 2025-06-16 15:11 | RADIOLOGY REPORT ---
EXAM: CT CT HEAD, CT CT CERVICAL SPINE INDICATION: Fall, head injury, syncope TECHNIQUE: CT images of the head and cervical spine were obtained without administration of IV contrast. CT scans at this facility use dose modulation, iterative reconstruction, and/or weight based dosing when appropriate to reduce radiation dose to as low as reasonably achievable. COMPARISON: None FINDINGS: PARENCHYMA: No acute hemorrhage. There is no mass effect, midline shift, or herniation. There is preservation of the alba white differentiation. Mild scattered hypoattenuation along the periventricular, centrum semiovale, and deep white matter tracts, which are nonspecific however statistically most likely represent chronic microvascular ischemic change. VENTRICLES: No hydrocephalus. EXTRA-AXIAL SPACES: Left frontal temporal convexity extra-axial hematoma most conspicuous of the inferior aspect of the temporal lobe measuring 0.8 cm in thickness. Blood product extension along the left tentorial leaflet. No significant underlying mass effect. No midline shift. Indeterminate small pu nctate areas of possible gas located along the hematoma along the inferior aspect of the left middle cranial fossa of indeterminate etiology. No definitive of the adjacent left temporal fracture. No secondary imaging evidence such as fluid along the left mastoid air cells. OTHER: Prominent right parietal soft tissue laceration and hematoma measuring up to 6 cm in width. Visualized portions of the paranasal sinuses and mastoid air cells are clear. CERVICAL SPINE: Anterior cervical discectomy and fusion in the lower cervical spine with corpectomy cage. No osseous lucency along the hardware bone interfaces. No perihardware fracture. Straightening of the normal cervical lordosis, which may be seen in the setting of patient positioning versus muscul ar spasm. Mild multilevel lower cervical spine facet arthropathy no endplate compression fracture. IMPRESSION: 1. Left frontal temporal convexity extra-axial hematoma most conspicuous of the inferior aspect of the temporal lobe measuring 0.8 cm in thickness. 2. Blood product extension along the left tentorial leaflet. 3. No significant underlying mass effect. No midline shift. 4. Indeterminate small punctate areas of possible gas located along the hematoma along the inferior aspect of the left middle cranial fossa of indeterminate etiology. 5. No definitive of the adjacent left temporal fracture. 6. No secondary imaging evidence such as fluid along the left mastoid air cells. 7. Prominent right parietal soft tissue laceration and hematoma measuring up to 6 cm in width. 8. No acute cervical spine fracture or traumatic malalignment.
--- NOTE | 2025-06-16 15:34 | Physician Documentation ---
History of Present Illness ~ Chief Complaint: Syncope Stated Complaint: FALL HEAD STRIKE Time Seen by MD: 14:12 Primary Medical Doctor: [facility] Mode of Arrival: EMS HPI 70-year-old female, history of diabetes, presenting with a syncopal episode and head injury She tells me that she started to feel like her blood sugar was low, felt lightheaded. She checked it and it was around 68. She tried to get her sugar pills, when her body suddenly tensed up, her head flipped backwards and then she lost consciousness. She woke up on the ground. She does report having a headache. She denies any neck pain. She denies any tingling numbness or weakness to her extremities. She denies any other associated injuries or pain. Denies any history of syncope in the past. She denies any chest pain or cardiac related history or symptoms. She is not on blood thinners including she does not take aspirin Medication Reconciliation Allergies: Coded Allergies: Penicillins (Verified Allergy, Unknown, 06/16/25) erythromycin base (Verified Allergy, Unknown, 06/16/25) Scheduled Bupropion HCl (Bupropion Xl), 450 MG PO QAM, (Reported) Evolocumab (Repatha Syringe), 140 MG SQ Q28D, (Reported) Metoprolol Tartrate (Lopressor tablet), 25 MG PO HS, (Reported) Metoprolol Tartrate (Metoprolol Tartrate), 1 TAB PO QAM, (Reported) Quetiapine Fumarate (Quetiapine Fumarate), 1 TAB PO HS, (Reported) Tizanidine Hcl (Zanaflex), 2 TAB PO HS, (Reported) Topiramate (Topamax), 2 TAB PO Q12H, (Reported) [T3/T4 Thyroid], 1 CAPSULE PO DAILY, (Reported) Scheduled PRN Acetaminophen With Codeine* (Tylenol #4*), 1 TAB PO TID PRN for pain, (Reported) [Novolog Insulin Pump], 0 SQ PRN PRN for PRN, (Reported) Past Medical History Past Medical History: Hepatitis C, Chronic Kidney Disease, Diabetes, Chronic Pain, Chronic Back Pain Past Surgical History: abdominal surgery, hysterectomy, orthopedic surgeries, tubal ligation Other Past Surgical History: Gastric Bypas 2002, right kidney removal Alcohol Use: None Drug Use: none Lives with: Family Lives In: Home Review of Systems Constitutional: Denies: fever Neurological: Reports: headache, fainting Physical Exam Vital Signs: Temperature: 98.5, Source: Temporal, Heart Rate: 77, Respiratory Rate: 18, BP: 140/82, Pulse Oximetry: 98, Weight: 85.000 Oxygen Flow Rate: 0 Physical Exam General: This is a pleasant middle-aged woman sitting calmly in bed HEENT: The patient has a large palpable hematoma to the right parietal scalp, no active bleeding. There is a 2 cm full-thickness laceration. Neck: No midline tenderness on palpation of the C-spine, full range of motion without limitation or pain Heart: Regular rate and rhythm, normal-appearing peripheral perfusion Lungs: normal work of breathing, normal oxygen saturation on room air Extremities: Warm and well-perfused, arrange of motion in all extremities without limitation or pain Neuro: Alert and oriented, no focal deficits Psychiatric: Calm and cooperative with exam Procedures Laceration / Wound Repair : Location: Right posterior scalp Length (cm): 2 Anesthesia: none Prep: irrigated by nurse Wound Repaired With: sutures Suture Size/Type: 4-0 Number of Superficial Sutures: 4 Dressing Applied: bacitracin Tolerated Procedure Well?: yes, no complications Progress Results/Orders Results/Orders Orders - MIKEY FOSTER MD Chest,Single View (06/16/25 14:06) Monitor (06/16/25 14:06) Saline Lock (06/16/25 14:06) Oxygen (06/16/25 14:06) Ct Head (06/16/25 14:54) Ct Cervical Spine (06/16/25 14:54) Completed Orders - MIKEY FOSTER MD Chest,Single View (06/16/25 14:06) Cbc/Diff (06/16/25 14:06) BMP (06/16/25 14:06) PBNP (06/16/25 14:06) Electrocardiogram (06/16/25 14:06) Hs Troponin I W Calculations (06/16/25 14:06) Hs Troponin I W Calculations (06/16/25 16:06) Ct Head (06/16/25 14:54) Ct Cervical Spine (06/16/25 14:54) Pt Inr (06/16/25 15:24) Normal Saline 500ml Iv Soln (Sodium Chlo (06/16/25 15:50) Acetaminophen 325mg Tablet (Tylenol Tabl (06/16/25 15:50) Morphine 2mg/Ml Inj. (Morphine Inj.) (06/16/25 15:50) Morphine 4mg/Ml Inj. (Morphine Inj.) (06/16/25 15:55) Labetalol Inj. (Trandate 20 Mg/4ml Syrin (06/16/25 17:05) Medications Received in ER Medications (Trade) Dose Ordered Sig/Marce Route PRN Reason Start Time Stop Time Status Last Admin Dose Admin Sodium Chloride 500 ml @ 500 mls/hr ONCE ONCE IV 06/16/25 15:50 06/16/25 16:49 DC 06/16/25 16:00 500 MLS/HR (Tylenol tablet) 650 mg ONCE ONCE PO 06/16/25 15:50 06/16/25 15:54 DC 06/16/25 15:59 650 MG (morphine inj.) 2 mg ONCE ONCE IV 06/16/25 15:50 06/16/25 15:54 DC 06/16/25 15:59 2 MG (Trandate 20 mg/ 4ml syringe) 10 mg ONCE ONCE IV 06/16/25 17:05 06/16/25 17:13 DC 06/16/25 17:14 10 MG Vital Signs 06/16/25 06/16/25 06/16/25 06/16/25 13:58 14:14 14:14 14:14 Temp 98.5 Pulse 88 77 Resp 16 18 B/P (MAP) 152/80 140/82 (101) Pulse Ox 98 98 98 O2 Delivery Room Air* O2 Flow Rate 0 0 0 FiO2 21 06/16/25 06/16/25 06/16/25 06/16/25 15:30 15:59 16:30 17:29 Temp 98.1 Pulse 68 72 87 Resp 16 16 14 16 B/P (MAP) 172/87 (115) 164/88 (113) 149/100 Pulse Ox 98 97 98 O2 Flow Rate 0 0 Laboratory Tests Test 06/16/25 14:07 06/16/25 14:14 06/16/25 16:28 Prothrombin Time 9.7 INR International Normalized Ratio 0.9 Coagulation Comments White Blood Count 11.5 H Red Blood Count 4.28 Hemoglobin 12.3 Hematocrit 39.3 Mean Corpuscular Volume 91.7 Mean Corpuscular Hemoglobin 28.8 Mean Corpuscular Hemoglobin Concent 31.4 L Red Cell Distribution Width 15.1 H Platelet Count 220 Mean Platelet Volume 9.1 Neutrophils (%) (Auto) 61.9 Lymphocytes (%) (Auto) 27.2 Monocytes (%) (Auto) 7.2 Eosinophils (%) (Auto) 2.7 Basophils (%) (Auto) 1.0 Neutrophils # (Auto) 7.2 Lymphocytes # (Auto) 3.1 Monocytes # (Auto) 0.8 Eosinophils # (Auto) 0.3 Basophils # (Auto) 0.1 CBC Comment Sodium Level 142 Potassium Level 4.7 Chloride Level 110 H Carbon Dioxide Level 18.0 L Anion Gap 14 Blood Urea Nitrogen 29 H Creatinine 1.93 H Estimated GFR/1.73 m2 26 BUN/Creatinine Ratio 15.0 Glucose Level 106 H Calcium Level 8.5 Troponin I High Sensitivity 12 31 Pro-B-Type Natriuretic Peptide 215 H Albumin 3.4 Chemistry Comments Troponin I High Sens Percent Delta 158 Troponin I Hi Sens Absolute Change 19 EKG/XRAY/CT/US/VASC/MRI EKG : Additional Comment I personally interpreted the EKG and this shows: Sinus rhythm, rate 83, QTC 436, no STEMI CT : Impression I personally interpreted the CT scan, and this shows left-sided subdural hematoma Consults/PCP Consults/PCP : Additional Comment Consult: I spoke to the ER physician at [facility], who accepted the patient as a transfer for admission Medical Decision Making Differential Dx:Considerations: Include: dysrhythmia, electrolyte disorder, myocardial infarction, vasovagal Additional Information Differential includes hematoma, laceration, fracture, intracranial hemorrhage, hypoglycemia Assessment The patient presents with a syncopal episode and head injury. Head CT shows a subdural hematoma. She also had a large scalp hematoma and laceration which was repaired with sutures. She will be transferred to a higher level of care including neurosurgical service for further treatment. Departure Impression: Primary Impression: Syncope Additional Impressions: Subdural hematoma Scalp laceration Referrals: NO PRIMARY CARE PROVIDER (PCP) Signature Scribe Signature: na Attestation: MIKEY Benedict MD Jun 16, 2025 15:34
[2025-06-16 15:57] LABS: INR 0.9 INR
[2025-06-16] MEDS: morphine 4 MG/ML inj SYRINge IV ONE (15:59)
[2025-06-16] MEDS: normal saline 500ml IV soln 500 ML IV ONE (16:00)
[2025-06-16] MEDS: labetalol 20mg/4ml (5mg/ml) syringe IV ONE (17:14)
[2025-06-16 17:29] VITALS: BP 149/100; PULSE 87; RESP 16; TEMP 98.1; O2SAT 98
== END 2025-06-16 17:30 | disposition short-term general hospital (02) ==
LOC: ER 13:57
DX: S01.01XA Laceration without foreign body of scalp, initial encounter (principal); S06.5XAA Traumatic subdural hemorrhage with loss of consciousness status unknown, initial encounter; R06.02 Shortness of breath; R55 Syncope and collapse; E11.22 Type 2 diabetes mellitus with diabetic chronic kidney disease; N18.9 Chronic kidney disease, unspecified; Z88.0 Allergy status to penicillin; Z88.1 Allergy status to other antibiotic agents; Z88.8 Allergy status to other drugs, medicaments and biological substances; Z90.710 Acquired absence of both cervix and uterus; X58.XXXA Exposure to other specified factors, initial encounter; Y93.9 Activity, unspecified; Y92.89 Other specified places as the place of occurrence of the external cause; Y99.8 Other external cause status
CPT/HCPCS: 12001; 36415; 70450; 71045; 72125; 80048; 83880; 84484; 85025; 85610; 93005; 96374; 96375; 99285; A6402; J2270; J3490; J7040; Z7610; A6449

== ENCOUNTER 2025-06-30 15:44 | Emergency (ER) | payer MEDICARE, BC ==
[~2025-06-30] VITALS: Ht 162.6 cm; Wt 80.5 kg
--- NOTE | 2025-06-30 16:24 | Physician Documentation ---
History of Present Illness ~ Chief Complaint: Headache Stated Complaint: HEADACHE,MED REQUEST Time Seen by MD: 16:21 Primary Medical Doctor: [facility] MSE: 70-year-old female that reports to the emergency department for medication refill. Patient was seen here on the 13th of the month after experiencing an acute onset of seizures and striking her head during a seizure event. Patient was worked up here and sent to [facility] for an additional workup that included CT of her head MRI and neurology follow up. Patient reports that she was prescribed Keppra and fluoro set upon discharge. Patient reports that she still wakes up every day with headaches takes fluorescein that it takes 1-2 hours with the headaches to subside but they do subside. Patient reports that she has been taking the Keppra twice a day as directed. Patient reports that she has been taking Fioricet every day to help with the headaches but that she is currently out and needs a refill of the prescription. Patient denies any new symptoms no vision changes no numbness no tingling no deficits no difficulty with thought patterns no speech difficulty no additional symptoms reported. Medication Reconciliation Allergies: Coded Allergies: Penicillins (Verified Allergy, Unknown, 06/30/25) erythromycin base (Verified Allergy, Unknown, 06/16/25) Scheduled Bupropion HCl (Bupropion Xl), 450 MG PO QAM, (Reported) Evolocumab (Repatha Syringe), 140 MG SQ Q28D, (Reported) Metoprolol Tartrate (Lopressor tablet), 25 MG PO HS, (Reported) Metoprolol Tartrate (Metoprolol Tartrate), 1 TAB PO QAM, (Reported) Quetiapine Fumarate (Quetiapine Fumarate), 1 TAB PO HS, (Reported) Tizanidine Hcl (Zanaflex), 2 TAB PO HS, (Reported) Topiramate (Topamax), 2 TAB PO Q12H, (Reported) [T3/T4 Thyroid], 1 CAPSULE PO DAILY, (Reported) Scheduled PRN Acetaminophen With Codeine* (Tylenol #4*), 1 TAB PO TID PRN for pain, (Reported) [Novolog Insulin Pump], 0 SQ PRN PRN for PRN, (Reported) Past Medical History Past Medical History: Hepatitis C, Chronic Kidney Disease, Diabetes, Chronic Pain, Chronic Back Pain Past Surgical History: abdominal surgery, hysterectomy, orthopedic surgeries, tubal ligation Other Past Surgical History: Gastric Bypas 2002, right kidney removal Alcohol Use: None Drug Use: none Lives with: Family Lives In: Home Review of Systems ROS As stated above in the HPI, otherwise all systems are reviewed and negative. Physical Exam Vital Signs: Temperature: 97.6, Source: Temporal, Heart Rate: 80, Respiratory Rate: 16, BP: 155/119, Pulse Oximetry: 98, Weight: 80.500 Oxygen Flow Rate: 0 Physical Exam VITALS: Reviewed and as above. GENERAL: Alert, no apparent distress. HEENT: Normocephalic, atraumatic, PERRL, EOMI, dry mucosa, no erythema RESPIRATORY: Lungs clear, normal breath sounds, no respiratory distress. CHEST: No accessory muscle use, no retractions CV: Regular rate, rhythm, no edema, no murmur, No: JVD GI: Soft, non-tender, bowels sounds present, no rebound, guarding, or rigidity BACK: No CVA tenderness, or swelling MUSCULOSKELETAL No deformities, no edema SKIN: Warm and dry, no rash, sutures noted to the scalp. NEURO: Oriented x4, No motor or sensory deficit PSYCH: Normal mood and affect, no agitation Progress Results/Orders Results/Orders Orders - KARTIK FULLER TELEHEALTH COORDINATOR General Nursing Order (06/30/25 16:42) Vital Signs 06/30/25 06/30/25 16:02 17:02 Temp 97.6 Pulse 80 Resp 16 16 B/P (MAP) 155/119 Pulse Ox 98 O2 Flow Rate 0 Medical Decision Making Findings Patient refill and suture removal. Suture removal was without complication. Medication was refilled today. Patient will follow up with her primary care provider and neurologist. Patient will return to the emergency department with any worsening or recurrent symptoms or any additional concerning symptoms that we discussed here today. I.e. increased headache that are not responsive to pain medication increased blood pressure visual disturbances numbness tingling lightheadedness difficulty with speech difficulty with cognition or any other concerning symptoms. Differential Dx:Considerations: Include: MCDONALD-Cluster, MCDONALD-Migraine, MCDONALD- Hypertensive, MCDONALD-Muscular contraction, MCDONALD-Post lumbar puncture, Carbon monoxide toxicity, Close head injuyr, CVA, Fever induced, Hemorrhage-Epidural, Hemorrhage-Intracerebral, Hemorrhage-Subarachnoid, Hemorrhage-Subdural, Mass lesion, Meningitis, Post-traumtic, Pseudotumor cerebri, Sinusitis, Temporal arteritis, Trigeminal neuralgia, Other Departure Disposition: 01 HOME / SELF CARE / HOMELESS Impression: Primary Impression: Medication refill Additional Impression: Visit for suture removal Discharge Instructions: Headache Additional Instructions: Patient refill and suture removal. Suture removal was without complication. Medication was refilled today. Patient will follow up with her primary care provider and neurologist. Patient will return to the emergency department with any worsening or recurrent symptoms or any additional concerning symptoms that we discussed here today. I.e. increased headache that are not responsive to pain medication increased blood pressure visual disturbances numbness tingling lightheadedness difficulty with speech difficulty with cognition or any other concerning symptoms. Referrals: NO PRIMARY CARE PROVIDER (PCP) Prescriptions Butalb/Acetaminophen/Caffeine (Fioricet Tab) 50 Mg-325 Mg-40 Mg Tablet 1 TAB PO Q12H PRN PRN for pain for 30 Days, #60 TAB 0 Refills Prov: KARTIK FULLER 06/30/25 Education Educated: Patient Educated regarding: diagnosis, treatment, need for follow up Signature Scribe Signature: A Attestation: Scribed for Kartik Fuller by JAMISON Carroll . 06/30/25 17:47 KARTIK FULLER Jun 30, 2025 16:24
[2025-06-30] MEDS ORDERED: BUTA-245 PO (17:30)
[2025-06-30 17:52] VITALS: BP 182/76; PULSE 77; RESP 16; TEMP 97.6; O2SAT 98
== END 2025-06-30 17:53 | disposition home or self-care (01) ==
LOC: ER 15:45
DX: R51.9 Headache, unspecified (principal); E11.22 Type 2 diabetes mellitus with diabetic chronic kidney disease; N18.9 Chronic kidney disease, unspecified; G89.29 Other chronic pain; Z48.02 Encounter for removal of sutures; Z76.0 Encounter for issue of repeat prescription; Z79.899 Other long term (current) drug therapy; Z86.19 Personal history of other infectious and parasitic diseases; Z88.1 Allergy status to other antibiotic agents; Z88.0 Allergy status to penicillin; Z90.710 Acquired absence of both cervix and uterus
CPT/HCPCS: 99284

== ENCOUNTER 2025-07-04 15:21 | Emergency (ER) | payer MEDICARE, BC ==
[~2025-07-04] VITALS: Ht 162.6 cm; Wt 81.0 kg
[~2025-07-04 15:21] MED LIST changes: +BUTA-245 PO
[2025-07-04] MEDS: ondansetron/PF 4mg/2ml inj IV ONE ×2 (16:10→16:11)
[2025-07-04] MEDS: morphine 4 MG/ML inj SYRINge IV ONE ×3 (16:11→17:18)
--- NOTE | 2025-07-04 16:41 | RADIOLOGY REPORT ---
CLINICAL HISTORY: headache TECHNIQUE: Helical scanning was performed of the head from the skull base to the vertex. Multiplanar reconstructions were performed. This exam was performed according to our departmental dose optimization program. Up-to-date CT equipment and radiation dose reduction techniques are utilized as appropriate. CTDI 55 DLP 921 COMPARISON: CT CT HEAD on DOS: 06/16/25, CT CT CERVICAL SPINE on DOS: 06/16/25 FINDINGS: There is no evidence for acute ischemic changes, or extra-axial fluid collection. There is no hydrocephalus or midline shift. There is no effacement of the cerebral sulci and basal subarachnoid cisterns. The alba-white matter differentiation is well maintained. There is an improving subacute to chronic Left anterolateral temporal lobe hemorrhagic contusion . There is mild associated vasogenic edema. Previous trace subdural hematoma along the left tentorium cerebelli appears resolved. There is mild brain volume loss and minimal chronic small vessel ischemic change. The imaged paranasal sinuses are clear. IMPRESSION: Improving acute Subacute to chronic left anterolateral temporal lobe intraparenchymal hemorrhage. Mild associated vasogenic edema.
[2025-07-04] MEDS: metoclopramide 5 mg/ml inj IV ONE (17:18)
[2025-07-04] MEDS: dexamethasone 4mg/ml inj IV ONE (17:18)
--- NOTE | 2025-07-04 18:19 | Physician Documentation ---
History of Present Illness ~ Chief Complaint: Headache Stated Complaint: HEADACHE Time Seen by MD: 15:47 OK to notify your PCP?: Yes Primary Medical Doctor: [facility] Mode of Arrival: EMS HPI 70-year-old female patient with recent history of intracranial bleed came to the emergency room for severe headache. There is nausea. No vomiting. She said that the pain medication that was prescribed does not work. No other complaints. Medication Reconciliation Allergies: Coded Allergies: Penicillins (Verified Allergy, Unknown, 06/30/25) erythromycin base (Verified Allergy, Unknown, 06/16/25) Scheduled Bupropion HCl (Bupropion Xl), 450 MG PO QAM, (Reported) Evolocumab (Repatha Syringe), 140 MG SQ Q28D, (Reported) Metoprolol Tartrate (Lopressor tablet), 25 MG PO HS, (Reported) Metoprolol Tartrate (Metoprolol Tartrate), 1 TAB PO QAM, (Reported) Quetiapine Fumarate (Quetiapine Fumarate), 1 TAB PO HS, (Reported) Tizanidine Hcl (Zanaflex), 2 TAB PO HS, (Reported) Topiramate (Topamax), 2 TAB PO Q12H, (Reported) [T3/T4 Thyroid], 1 CAPSULE PO DAILY, (Reported) Scheduled PRN Acetaminophen With Codeine* (Tylenol #4*), 1 TAB PO TID PRN for pain, (Reported) Butalb/Acetaminophen/Caffeine (Fioricet Tab), 1 TAB PO Q12H PRN PRN for pain Metoclopramide HCl (Reglan), 1 TAB PO Q6H PRN for nausea/vomiting Oxycodone HCl/Acetaminophen (Percocet 10-325 mg Tablet), 1 TAB PO QID PRN PRN for pain [Novolog Insulin Pump], 0 SQ PRN PRN for PRN, (Reported) Past Medical History Past Medical History: Hepatitis C, Chronic Kidney Disease, Diabetes, Chronic Pain, Chronic Back Pain Past Surgical History: abdominal surgery, hysterectomy, orthopedic surgeries, tubal ligation Other Past Surgical History: Gastric Bypas 2002, right kidney removal Smoking Status: Former smoker Alcohol Use: None Drug Use: none Lives with: Family Lives In: Home Review of Systems ROS As stated above in the HPI, otherwise all systems are reviewed and negative. Physical Exam Vital Signs: Heart Rate: 74, Respiratory Rate: 16, BP: 139/64, Pulse Oximetry: 98, Weight: 81.000 Oxygen Flow Rate: 0 Physical Exam Reviewed vital signs and they are well within normal range. Const: Not in acute cardiopulmonary distress but in a lot of pain in her head. Head: Atraumatic Eyes: Normal Conjunctiva ENT: Normal External Ears, Nose and Mouth. Moist mucous membranes Neck: Full range of motion. No meningismus Resp: Clear to auscultation bilaterally. Normal work of breathing Cardio: Regular rate and rhythm, no murmurs. Skin well perfused Abd: Soft, non-tender, non-distended. Normal bowel sounds. No rebound or guarding Skin: No petechiae or rashes. Warm and dry Back: No midline or flank tenderness Ext: No cyanosis, or edema Neuro: Awake and alert GCS 15/15 and no focal deficit. Psych: Normal Mood and Affect Progress Results/Orders Results/Orders Orders - KRISTOPHER HERRERA MD Ct Head (07/04/25 15:47) Completed Orders - KRISTOPHER HERRERA MD Ct Head (07/04/25 15:47) Morphine 4mg/Ml Inj. (Morphine Inj.) (07/04/25 16:10) Ondansetron Inj. (Zofran 4mg/2ml Vial) (07/04/25 16:10) Morphine 4mg/Ml Inj. (Morphine Inj.) (07/04/25 16:10) Ondansetron Inj. (Zofran 4mg/2ml Vial) (07/04/25 16:10) Dexamethasone Inj (Decadron 4mg/Ml Inj) (07/04/25 17:05) Morphine 4mg/Ml Inj. (Morphine Inj.) (07/04/25 17:05) Diphenhydramine Inj (Benadryl Inj.) (07/04/25 17:05) Metoclopramide Inj (Reglan Inj) (07/04/25 17:05) Vital Signs 07/04/25 07/04/25 07/04/25 07/04/25 15:36 15:43 15:46 16:11 Pulse 75 77 Resp 15 18 14 B/P (MAP) 138/81 160/90 (113) Pulse Ox 98 98 O2 Flow Rate 0 0 1007/04/25 07/04/25 07/04/25 17:10 17:18 18:10 18:39 Pulse 74 87 Resp 15 15 16 15 B/P (MAP) 139/64 (89) 151/57 Pulse Ox 98 97 O2 Flow Rate 0 Medical Decision Making Findings ER Course/Med. Decision Making REVIEW of RECORD(S): Previous medical records here and/or external medical records, such as that provided directly by the patient, by EMS and/or outside medical facilities, if available, were reviewed. COMORBIDITIES recent ICH MDM During the physical examination, the findings suggestive of acute life- threatening condition such as JVD, tracheal deviation, acidotic breathing, noisy stridorous breath sounds, pulses paradoxus, muffled heart sounds, unequal breath sounds, abdominal rigidity and rebound tenderness, focal neurological deficits, cool clammy skin, severe hypotension, severe tachycardia or bradycardia are absent. Patient presenting for head ache. . Vital signs reviewed. Patient is hemodynamically stable and does not meet SIRS criteria. Patient appears nontoxic on exam. CT scan of the head was done and it shows some resolution of the bleed. No new bleed. In fact it is improving. Provisional diagnosis: Severe head pain secondary to intracranial hemorrhage which is improving Prior to discharge I independently reviewed the patients past medical history, clinical risk factors, comorbidities, and social determinants of health and diagnostic studies. The patient appears to be a safe discharge home with close outpatient PCP follow-up I had extensive discussion with patient regarding management, disposition and follow up. Potential symptom etiology was discussed, and shared decision making occurred. They will return immediately if symptoms worsen, do not improve, or they have any further concerns. Prior to discharge all questions were addressed. The patient is aware that the purpose of this visit was to screen for an acute medical emergency requiring emergent stabilization. Chronic and occult conditions, including malignancies, h ave not been ruled out. If patient is unable to arrange follow-up as stated in the discharge instructions and further discussed with the patient directly, or their symptoms worsen/become more concerning, they are to return to the ER for reassessment immediately. Prior to leaving the department, the patient has a plan for discharge, has decision making capacity, and acknowledges an understanding of the verbal and written discharge instructions. SOCIAL DETERMINANTS: Patient demonstrates no obvious challenges to following up as an outpatient although did consider whether patient had any barriers to access care including homelessness, Food insecurity, Mental health, Substance abuse, Disabilities, Limited access to medical care, Difficulty finding transport, Insurance issues, Refusal of care or testing due to cost concerns. MEDICAL SCREENING: I have discussed with the patient the non-definitive nature of the emergency screening exam, diagnosis and the possibility of a variety of conditions which may present in atypically benign fashion and stressed the importance of close follow-up for definitive diagnosis and treatment. We discussed signs and symptoms that should be watched for which might indicate a more serious or new condition that would benefit from emergency reevaluation and the patient has verbalized understanding to this and my other detailed discharge instructions and promises compliance. I have referred him back to his primary physician of course for a more detailed evaluation and more definitive diagno ses. DISCLAIMER: Inadvertent spelling and grammatical errors are likely due to EMR/dictation software use and do not reflect on the overall quality of patient care. Note that the electronic time recorded on this note does not necessarily reflect the actual time of the patient encounter. Departure Disposition: 01 HOME / SELF CARE / HOMELESS Impression: Primary Impression: Post concussion syndrome Additional Impression: Subdural hematoma Condition: Stable Discharge Instructions: Headache, Post Concussion Syndrome,Adult Additional Instructions: Thank you for coming to our Emergency Department today. Please ask your nurse or provider if you have questions about your care today and do not leave until all your questions have been answered. Please use any medications given as directed and follow-up with your doctor (or the doctor you were referred to) in the next 1-3 days. Your primary care doctor can help to coordinate outpatient specialty care and provide authorization for specialty referral as needed. If you do not have a primary care doctor you may follow up at a [facility]. You may also use motrin and tylenol as needed for fever and/or pain unless instructed otherwise by your provider or nurse. Indications for more urgent follow-up have been discussed, but you may return to the Emergency Department at ANY time for any worrisome or worsening symptoms. [facility] Facilities: County Facilities: [facility]: [facility] [place] Address:[address] [place] [address] [facility]: [place] Address:[address] [place] [address] [facility]: [facility] Address:[address] [place], [place] [id number] Formerly Named [facility] Address:[address] [id number] Registration Billing Pharmacy Referrals [facility] Address:[address] [place] [address] Referrals: NO PRIMARY CARE PROVIDER (PCP) Prescriptions Metoclopramide HCl (Reglan) 10 Mg Tablet 1 TAB PO Q6H PRN for nausea/vomiting for 30 Days, #30 TAB 0 Refills before food and bedtime Prov: KRISTOPHER HERRERA MD 07/04/25 Oxycodone HCl/Acetaminophen (Percocet 10-325 mg Tablet) 10 Mg-325 Mg Tablet 1 TAB PO QID PRN PRN for pain for 5 Days, #20 TAB 0 Refills Prov: KRISTOPHER HERRERA MD 07/04/25 Signature Scribe Signature: None Attestation: My dictation KRISTOPHER HERRERA MD Jul 04, 2025 18:19
[2025-07-04] MEDS ORDERED: OXYC-150 PO (18:20)
[2025-07-04] MEDS ORDERED: METO-292 PO (18:21)
[2025-07-04 18:39] VITALS: BP 151/57; PULSE 87; RESP 15; O2SAT 97
== END 2025-07-04 18:41 | disposition home or self-care (01) ==
LOC: ER 15:21
DX: R51.9 Headache, unspecified (principal); E11.22 Type 2 diabetes mellitus with diabetic chronic kidney disease; N18.9 Chronic kidney disease, unspecified; G89.29 Other chronic pain; Z86.73 Personal history of transient ischemic attack (TIA), and cerebral infarction without residual deficits; Z86.19 Personal history of other infectious and parasitic diseases; Z88.0 Allergy status to penicillin; Z88.1 Allergy status to other antibiotic agents; Z90.710 Acquired absence of both cervix and uterus; Z79.899 Other long term (current) drug therapy
CPT/HCPCS: 70450; 96374; 96375; 96376; 99285; J1100; J1200; J2270; J2405; J2765